=== PATIENT | male | born 1960 | race Caucasian/White ===

== ENCOUNTER 2016-10-31 08:23 | Day surgery (SDC) | payer BC ==
[2016-10-31] MEDS: Polymyxin B/Trimethoprim 10 ML Bottle EYELF SCH ×4 (09:53→11:39)
--- NOTE | 2016-10-31 09:55 | PCM.PREANE ---
Preanesthetic Assessment - Procedure Proposed Procedure: Cataract extraction left eye. - Anesthesia/Transfusion/Family Hx Anesthesia History: Prior Anesthesia Without Reaction Family History of Anesthesia Reaction: No Transfusion History: No Prior Transfusion(s) Intubation History: Unknown - Review of Systems General: No Symptoms Pulmonary: No Symptoms Cardiovascular: No Symptoms (HTN; high cholesterol) Gastrointestinal: No Symptoms Neurological: No Symptoms Other: Reports: Depression - Physical Assessment NPO Status Date: 10/30/16 NPO Status Time: 20:00 Pulse: 63 O2 Sat by Pulse Oximetry: 98 Respiratory Rate: 16 Blood Pressure: 132/76 Temperature: 98.2 C Height: 1.83 m Weight: 93 kg ASA Class: 2 Mental Status: Alert & Oriented x3 Airway Class: Mallampati = 1 Dentition: Reports: Normal Dentition Thyro-Mental Finger Breadths: 3 Mouth Opening Finger Breadths: 3 ROM/Head Extension: Full Lungs: Clear to Auscultation, Normal Respiratory Effort Cardiovascular: Regular Rate, Regular Rhythm - Allergies Allergies/Adverse Reactions: Allergies Allergy/AdvReac Type Severity Reaction Status Date / Time No Known Allergies Allergy Verified 10/30/16 14:06 - Anesthesia Plan Pre-Op Medication Ordered: None - Acknowledgements Anesthesia Type Planned: MAC Pt an Appropriate Candidate for the Planned Anesthesia: Yes Alternatives and Risks of Anesthesia Discussed w Pt/Guardian: Yes Pt/Guardian Understands and Agrees with Anesthesia Plan: Yes PreAnesthesia Questionnaire Cardiovascular History: Reports: High Cholesterol, Hypertension - Past Surgical History GI Surgical History: Reports: Hernia Repair/Other - SUBSTANCE USE Smoking Status *Q: Never Smoker - HOME MEDS Home Medications: Home Meds Aspirin 81 mg PO DAILY 10/30/16 [History] Doxazosin [Cardura] 2 mg PO DAILY 10/30/16 [History] Latanoprost 1 drop EYEBOTH DAILY 10/30/16 [History] Rosuvastatin Calcium 20 mg PO DAILY 10/30/16 [History] Valsartan 160 mg PO DAILY 10/30/16 [History] buPROPion [Wellbutrin SR] 150 mg PO DAILY 10/30/16 [History] - CURRENT (IN HOUSE) MEDS Current Meds: Current Medications Brimonidine Tartrate (Alphagan 0.2% Ophth Soln) 0 ml EYELF ASDIRECTED JALIL Stop: 10/31/16 18:00 Cefuroxime Sodium (Zinacef) 0 mg EYELF ASDIRECTED JALIL Stop: 10/31/16 18:00 Lidocaine HCl (Xylocaine-Mpf 1%) 1 ml INJECT ASDIRECTED JALIL Stop: 10/31/16 18:00 Phenylephrine HCl (Jono-Synephrine 2.5% Ophth Soln) 0 ml EYELF ASDIRECTED JALIL Stop: 10/31/16 18:00 Pilocarpine HCl (Pilocar 4% Ophth Soln) 0 ml EYELF ASDIRECTED JALIL Stop: 10/31/16 18:00 Polymyxin/Trimethoprim Sulfate (Polytrim Ophth Soln) 0 ml EYELF ASDIRECTED JALIL Stop: 10/31/16 18:00 Tetracaine HCl (Tetracaine 0.5% Steri-Unit Dinora) 0 ml EYELF ASDIRECTED JALIL Stop: 10/31/16 18:00 Tropicamide (Mydriacyl 1% Ophth Soln) 0 ml EYELF ASDIRECTED JALIL Stop: 10/31/16 18:00
[2016-10-31] MEDS: Brimonidine 0.2% Ophth Soln 5 ML Bottle EYELF SCH ×4 (09:58→11:39)
[2016-10-31] MEDS: Phenylephrine 2.5% Ophth Soln 2 ML Bot EYELF SCH ×6 (10:05→11:23)
[2016-10-31] MEDS: Lidocaine 1% PF 2 ML SDV INJECT SCH ×2 (10:54→11:28)
[2016-10-31] MEDS: Tetracaine HCl/PF 0.5% 4 ML Bottle EYELF SCH ×3 (10:54→11:29)
[2016-10-31] MEDS: Cefuroxime 10 MG/ML SYRINGE EYELF SCH ×2 (10:54→11:38)
[2016-10-31] MEDS: Pilocarpine 4% Ophth Soln 15 ML Bot EYELF SCH ×2 (10:55→11:39)
--- NOTE | 2016-10-31 11:41 | PCM48HPAN ---
Post Anesthesia Note - EVALUATION WITHIN 48HRS OF ANESTHETIC Vital Signs in Normal Range: Yes Patient Participated in Evaluation: Yes Respiratory Function Stable: Yes Airway Patent: Yes Cardiovascular Function Stable: Yes Hydration Status Stable: Yes Pain Control Satisfactory: Yes Nausea and Vomiting Control Satisfactory: Yes Mental Status Recovered: Yes
[2016-10-31 11:52] VITALS: BP 122/83
== END 2016-10-31 11:50 | disposition home or self-care (01) ==
LOC: JD.SDS 08:23 → EDBD 11:30 → JD.SDS 11:50
PROVIDERS: ATTEND Ophthalmology
PROC: 08RK3JZ Replacement of Left Lens with Synthetic Substitute, Percutaneous Approach (ICD-10-PCS; principal; 2016-10-31)
DX: H25.812 Combined forms of age-related cataract, left eye (principal); E78.00 Pure hypercholesterolemia, unspecified; I10 Essential (primary) hypertension; Z98.890 Other specified postprocedural states; Z79.82 Long term (current) use of aspirin; Z79.1 Long term (current) use of non-steroidal anti-inflammatories (NSAID); Z79.899 Other long term (current) drug therapy
CPT/HCPCS: 66984; A9270; J0697; C1780